=== PATIENT | male | born 1960 | race African-American/Black ===

== ENCOUNTER 2016-12-26 05:53 | Day surgery (SDC) | payer MEDICARE, OTHER ==
[2016-12-26] VITALS (9 sets, daily range): BP systolic 105–135; BP diastolic 66–82
[~2016-12-26] VITALS: Ht 180.3 cm; Wt 124.7 kg
[~2016-12-26 05:53] MED LIST: ALLOPURINOL300 M1 ORAL; AMLODIPINE BESY10 MG ORAL; ASPIRIN EC81 MG ORAL; ATORVASTATIN CA40 MG ORAL; CLOPIDOGREL75 MG ORAL; COLCHICINE0.6 M1 PO; METOPROLOL TART50 M1 ORAL
[2016-12-26] MEDS ORDERED: Bupivacaine 0.5% Inj 30 ml vial INJ ONE (06:52)
[2016-12-26] MEDS ORDERED: Bacitracin 50000 Units Vial ONE (06:52)
--- NOTE | 2016-12-26 07:18 | Pre-Procedure Note/Attestation ---
Pre-Procedure Note/Attestation Complete Prior to Procedure Planned Procedure: left Procedure Narrative: Left foot bunionectomy with excision of bone fragment Indications for Procedure Pre-Operative Diagnosis: Left foot painful bunion with chronic plantar callus formation Attestation I attest that I discussed the nature of the procedure; its benefits; risks and complications; and alternatives (and the risks and benefits of such alternatives ), prior to the procedure, with the patient (or the patient's legal direct customer service representative). I attest that, if there was a reasonable possibility of needing a blood transfusion, the patient (or the patient's legal direct customer service representative) was given the [facility] standardized written summary, pursuant to the [place] Blood Safety Act ([place] Health and Safety Code # 1645, as amended). I attest that I re-evaluated the patient just prior to the surgery and that there has been no change in the patient's H&P, except as documented below: Douglas Hair DPM December 26, 2016 07:18
[2016-12-26] MEDS ORDERED: Lidocaine 1% Plain 30 ml INJ ONE (07:29)
[2016-12-26] MEDS ORDERED: fentaNYL 100 mcg/2 mL IV ONE (07:30)
[2016-12-26] MEDS ORDERED: Propofol 10mg/ml 20ml IV ONE (07:30)
[2016-12-26] MEDS ORDERED: NS Irrig 1000ml ONE (07:30)
[2016-12-26] MEDS ORDERED: LR 1000ml ONE ×2 (07:30)
[2016-12-26] MEDS ORDERED: Midazolam 2mg/2ml Inj ONE (07:30)
[2016-12-26] MEDS ORDERED: Metoclopramide 10mg/2ml Inj ONE (07:30)
[2016-12-26] MEDS ORDERED: Sterile Water Irrig 1000ml IRRIG ONE (07:30)
[2016-12-26] MEDS ORDERED: Lidocaine 1% MPF 10mg/ml 5ml ONE (07:30)
[2016-12-26] MEDS ORDERED: fentaNYL 100 mcg/2 mL IV PRN (08:30)
--- NOTE | 2016-12-26 08:46 | Anethesia Preoperative Eval ---
Anesthesia Pre-op PMH/ROS General Date of Evaluation: December 26, 2016 Time of Evaluation: 07:30 Anesthesiologist: eliceo ASA Score: ASA 3 Mallampati Score Class I : Soft palate, uvula, fauces, pillars visible Class II: Soft palate, uvula, fauces visible Class III: Soft palate, base of uvula visible Class IV: Only hard plate visible Mallampati Classification: Class III Surgeon: michell Diagnosis: hallus valgus Surgical Procedure: left foot bunionectomy Anesthesia History: none Social History: smoking, current smoker Family History: no anesthesia problems Allergies: Coded Allergies: No Known Allergies (Unverified , 12/23/16) Medications: see eMAR Past Medical History Cardiovascular: Reports: CAD, HTN, other - s/p stents x2 a year ago Pulmonary: Reports: other - smoker Gastrointestinal/Genitourinary: Reports: GERD, other - Hep c Neurologic/Psychiatric: Denies: CVA, TIA, dementia, depression/anxiety, other Endocrine: Reports: steroids - for OA HEENT: Denies: [place] (L), [place] (R), cataract (L), cataract (R), glaucoma, other Hematology/Immune: Denies: DVT, anemia, bleeding disorder, other Musculoskeletal/Integumentary: Reports: OA Other: obesity PSxH Narrative: stents placement Anesthesia Pre-op Phys. Exam Physician Exam Last Vital Signs Date Time Temp Pulse Resp B/P Pulse Ox O2 Delivery O2 Flow Rate FiO2 12/26/16 06:34 96.2 56 18 107/67 95 Room Air Constitutional: NAD Neurologic: CN 2-12 intact Cardiovascular: RRR Respiratory: CTA Gastrointestinal: S/NT/ND Airway Exam Mallampati Classification 3 MO: full Neck: thick ROM: full Dentures: no lower, no upper Anesthesia Pre-op A/P Studies Pre-op Studies: EKG - SR Risk Assessment & Plan Plan: general Status Change Before Surgery: No Pre-Antibiotics Drug: ancef Given Within 1 Hr of Incision: Yes Time Given: 07:30 DAJA LIZ CRNA December 26, 2016 08:46
--- NOTE | 2016-12-26 09:17 | Immediate Post-Op Evaluation ---
Immediate Post-Op Evalulation Immediate Post-Op Evalulation Procedure: bunionectomy Date of Evaluation: December 26, 2016 Time of Evaluation: 09:16 IV Fluids: 600 Blood Pressure Systolic: 135 Blood Pressure Diastolic: 92 Pulse Rate: 66 Respiratory Rate: 14 O2 Sat by Pulse Oximetry: 100 Temperature (Fahrenheit): 97.1 Nausea: No Vomiting: No Complications none Patient Status: awake, reacts, patent Drug: ancef Given Within 1 Hr of Incision: Yes Time Given: 07:30 DAJA LIZ CRNA December 26, 2016 09:17
--- NOTE | 2016-12-26 09:19 | Brief Operative Note ---
Immediate Post Operative Note Operative Note Pre-op Diagnosis: Left foot painful bunion with chronic plantar callus formation Procedure: 1. Left foot modified Correia bunionectomy 2. Excision of painful left foot loose bone fragments 3. Left foot tibial sesamoid planing 4. Excision of left foot areas of deep plantar calluses x 2 Post-op Diagnosis: Left foot painful bunion with chronic plantar callus formation Post-op Diagnosis: same as pre-op Findings: consistent w/pre-op dx studies Surgeon: Douglas Hair DPM Anesthesiologist: Leeann Fiore Anesthesia: local, MAC Specimen: yes Complications: none Condition: stable Fluids: None Estimated Blood Loss: volume - 10 Drains: none Packing: None Tourniquet time: 66 Implant(s) used?: No Douglas Hair DPM December 26, 2016 09:19
--- NOTE | 2016-12-26 09:48 | 48 Hour Post Anesthesia Eval ---
Post Anesthesia Evaluation Procedure: bunionectomy Date of Evaluation: December 26, 2016 Time of Evaluation: 09:48 Blood Pressure Systolic: 125 0: 60 Pulse Rate: 74 Respiratory Rate: 14 O2 Sat by Pulse Oximetry: 100 Airway: patent Nausea: No Vomiting: No Hydration Status: adequate Mental Status/LOC: patient returned to baseline Post-Anesthesia Complications: none Follow-up care needed: N/A DAJA LIZ CRNA December 26, 2016 09:48
--- NOTE | 2016-12-26 11:51 | Diagnostic Imaging Report ---
Indications: Status post bunionectomy Technique: Portable views left foot Findings: Comparison: None Longitudinal osteotomy has been performed through the medial margin of the first metatarsal head and neck. Overlying soft tissues are mildly swollen with gas. Fiberglass splint has been applied. Digital ray alignment is intact. First metatarsophalangeal joint mildly narrowed with marginal osteophyte formation. Small spurs emanate from the plantar and posterior aspects of calcaneus. IMPRESSION: Status post medial bunionectomy First metatarsophalangeal degenerative arthropathy Calcaneal enthesophytes
--- NOTE | 2016-12-27 23:00 | Operative Note - Dictated ---
SURGEON: Douglas Hari DPM PREOPERATIVE DIAGNOSIS: Left foot painful bunion with chronic plantar callus formation. POSTOPERATIVE DIAGNOSIS: Left foot painful bunion with chronic plantar callus formation. PROCEDURES: 1. Left foot modified Correia bunionectomy. 2. Excision of painful left foot loose bone fragments. 3. Left foot tibial sesamoid planing. 4. Excision of left foot areas of deep plantar calluses x2 . FINDINGS: Consistent with preop diagnosis. ANESTHESIOLOGIST: Leeann Fiore CRNA ANESTHESIA: Local with MAC. SPECIMEN: 1. Loose bone fragments from plantar first metatarsal phalangeal joint. 2. Bone from left foot first metatarsal medial eminence and from tibial sesamoid planing. 3. Skin with deep callus. COMPLICATIONS: None. CONDITION: Stable. ESTIMATED BLOOD LOSS: 10 mL. DRAINS: None. PACKING: None. TOURNIQUET TIME: 66 minutes. IMPLANTS USED: None. Procedure: The patient was brought into the operating room and was assisted onto the operating table in supine position. A 2 g of Ancef were administered preoperatively. A time-out was performed. Consciousness sedation was started and the left foot was anesthetized using 10 mL of a 1:1 mixture using 1% lidocaine plain and 0.25% Marcaine plain. The left foot was then scrubbed, prepped, and draped in the usual aseptic manner. Left ankle tourniquet was applied. The foot was exsanguinated using an Esmarch and the tourniquet was inflated to 190 mmHg. An incision was made at the medial aspect of the left foot first metatarsophalangeal joint. Incision was deepened with care taken to avoid neurovascular structures. Incision was deepened down to the joint capsule where three small bone fragments were visible. They were then excised and saved to be sent for pathological analysis. At this time, a sagittal saw was used to cut the first metatarsal and medial eminence as well as the medial base of the proximal phalanx. The area was then smoothed down using a rasp. A tibial sesamoid planning was performed. Next, the two plantar medial areas of hyperkeratosis were excised using elliptical incision. The skin was removed in toto and sent for pathological analysis. At this time, the surgical site was irrigated with copious amounts of normal saline solution. Next, 3-0 Vicryl was used to reapproximate the joint capsule where capsulorrhaphy was performed. A 4-0 Vicryl was used to reapproximate the subcutaneous tissue. Then 3-0 nylon was used to close the skin. The tourniquet was deflated and the skin was noted to be pink with no ischemic changes. The incisions were then covered with Adaptic 4 x 4 gauze, Kerlix, and Coban. The patient tolerated the procedure and anesthesia well without any complications. He was then transferred to the postop care unit with vital stable. Postoperatively, the patient and his were instructed of all postoperative instructions. I have provided all postoperative instructions including nonweightbearing on the left foot elevation and taking pain medication as prescribed. The patient will be followed up in clinic in one week. Douglas Hair DPM DR: Shahnaz JOB#: [id number] CC: LUIS
== END 2016-12-26 10:55 | disposition home or self-care (01) ==
LOC: SUR 05:53
DX: M21.612 Bunion of left foot (principal); M20.12 Hallux valgus (acquired), left foot; L84 Corns and callosities; L83 Acanthosis nigricans; L85.9 Epidermal thickening, unspecified; M10.9 Gout, unspecified; M13.0 Polyarthritis, unspecified; I10 Essential (primary) hypertension; B18.2 Chronic viral hepatitis C; I25.10 Atherosclerotic heart disease of native coronary artery without angina pectoris; Z95.5 Presence of coronary angioplasty implant and graft; K21.9 Gastro-esophageal reflux disease without esophagitis; R73.03 Prediabetes; K02.9 Dental caries, unspecified; F17.200 Nicotine dependence, unspecified, uncomplicated; E66.01 Morbid (severe) obesity due to excess calories; Z68.38 Body mass index [BMI] 38.0-38.9, adult; Z79.82 Long term (current) use of aspirin; Z79.52 Long term (current) use of systemic steroids; M24.075 Loose body in left toe joint(s)
CPT/HCPCS: 11420; 28292; 73630; 97161; J0690; J2001; J2250; J2405; J2704; J2765; J3010; J3490; J7120; 94003; 94150